=== PATIENT | female | born 1945 | race Caucasian/White ===

== ENCOUNTER 2023-08-01 10:15 | Inpatient (IN) | payer OTHER ==
[2023-08-01] MEDS ORDERED: SODIUM CHLORIDE 1,000 ML IV STA (10:46)
[2023-08-01 10:49] VITALS: BMI 26.6
[2023-08-01 11:20] LABS: BASO % 0.4 % (0-2.0); EOS % 0.5 % (0-4.5); HEMATOCRIT 37.9 % (32.4-45.2); HEMOGLOBIN 12.8 GM/dL (10.7-15.3); LYMPH % 21.1 % (8-40); MCH 27.3 pg (25.7-33.7); MCHC 33.7 g/dl (32.0-36.0); MEAN CELL VOLUME 80.9 fl (80-96); MEAN PLT VOLUME 7.3 fl (7.5-11.1); MONO % 5.1 % (3.8-10.2); NEUT % 72.9 % (42.8-82.8); PLATELET COUNT 225 10^3/uL (134-434); RBC 4.69 M/mm3 (3.60-5.2); RDW 15.1 % (11.6-15.6); WHITE BLOOD COUNT 6.7 K/mm3 (4.0-10.0)
[2023-08-01 11:24] LABS: INR 1.07 (0.83-1.09); PROTHROMBIN TIME (PATIENT) 12.4 SEC (9.7-13.0)
[2023-08-01 11:42] LABS: POTASSIUM 3.4 mmol/L (3.5-5.1)
[2023-08-01 11:46] LABS: CALCIUM 9.5 mg/dL (8.5-10.1)
[2023-08-01 11:47] LABS: ALBUMIN 3.7 g/dl (3.4-5.0); BLOOD UREA NITROGEN 20.8 mg/dL (7-18); MAGNESIUM 1.9 mg/dL (1.8-2.4)
[2023-08-01 11:49] LABS: CREATININE 0.9 mg/dL (0.55-1.3)
[2023-08-01 11:51] LABS: TOT PROT 6.5 g/dl (6.4-8.2)
[2023-08-01] MEDS ORDERED: POTASSIUM CHLORIDE ORAL LIQUID 20 MEQ/15 ML PO ONE (12:10)
[2023-08-01] MEDS ORDERED: POTASSIUM CHLORIDE ORAL LIQUID 20 MEQ/15 ML ONE (12:14)
[2023-08-01] MEDS ORDERED: METOPROLOL TARTRATE 25 MG TABLET (FP) PO ONE (12:23)
[2023-08-01] MEDS ORDERED: APIXABAN 5 MG TABLET PO SCH (12:30)
[2023-08-01] MEDS ORDERED: METOPROLOL TARTRATE 25 MG TABLET (FP) ONE (12:41)
[2023-08-01] MEDS ORDERED: APIXABAN 5 MG TABLET ONE (12:42)
[2023-08-01] MEDS ORDERED: PANTOPRAZOLE 40 MG TABLET PO ONE ×2 (12:51)
[2023-08-01 17:04] VITALS: TEMP 98.9
[2023-08-01 19:33] VITALS: BP 127/77; PULSE 75; RESP 16
[2023-08-01] MEDS ORDERED: PREGABALIN 75 MG CAPSULE PO SCH (22:00)
[2023-08-01] MEDS ORDERED: PANTOPRAZOLE 40 MG TABLET PO SCH (22:00)
[2023-08-01] MEDS ORDERED: METOPROLOL TARTRATE 25 MG TABLET (FP) PO SCH (22:00)
[2023-08-01] MEDS ORDERED: FAMOTIDINE 40 MG TABLET PO SCH (22:00)
[2023-08-01] MEDS ORDERED: ROSUVASTATIN CA 5 MG TABLET PO SCH (22:00)
[2023-08-01] MEDS ORDERED: ZOLPIDEM TARTRATE 5 MG TABLET PO PRN (22:00)
[2023-08-02] MEDS ORDERED: amLODIPine BESYLATE 2.5 MG TABLET (FP) PO SCH (10:00)
== END 2023-08-01 21:35 | disposition left against medical advice (07) | DRG 310 ==
LOC: JER 10:15 → JERBED 12:25 → OBSVTOIN 16:41
PROVIDERS: ADMIT Internal Medicine; ATTEND Nurse Practitioner Acute Care
DX: I48.91 Unspecified atrial fibrillation (principal); I10 Essential (primary) hypertension; E78.5 Hyperlipidemia, unspecified; M06.9 Rheumatoid arthritis, unspecified; Z87.11 Personal history of peptic ulcer disease; E03.9 Hypothyroidism, unspecified
CPT/HCPCS: 36415; 71045-TC-FY; 80053; 82962; 83735; 84439; 84443; 84484; 85025; 85610; 85730; 86850; 86900; 86901; 93005; 93010; 93306-TC; 99285-25; G0378